=== PATIENT | female | born 1945 | race Caucasian/White ===

== ENCOUNTER 2017-03-14 19:18 | Observation (INO) | payer MEDICARE, OTHER ==
[2017-03-14] MEDS ORDERED: ASPIRIN CHEW 81 MG TABLET PO STA (19:53)
[2017-03-14] MEDS ORDERED: ASPIRIN CHEW 81 MG TABLET ONE (19:57)
[2017-03-14] MEDS ORDERED: POTASSIUM CHLORIDE 20 MEQ TABLET PO STA (20:23)
[2017-03-14] MEDS ORDERED: POTASSIUM CHLORIDE 20 MEQ TABLET PO ONE (20:30)
[2017-03-14] MEDS ORDERED: NITROGLYCERIN SL 0.4 MG TABLET SL PRN (20:37)
[2017-03-14] MEDS ORDERED: ONDANSETRON 4 MG/2 ML VIAL IVP PRN (20:37)
[2017-03-14] MEDS ORDERED: PROCHLORPERAZINE 10 MG/2 ML VIAL IVP PRN (20:37)
[2017-03-14] MEDS ORDERED: SODIUM CHLORIDE FLUSH 0.9% 10 ML SYRINGE IVP PRN (20:37)
[2017-03-14] MEDS ORDERED: MORPHINE 2 MG/ML SYRINGE IVP PRN (20:37)
[2017-03-14] MEDS ORDERED: ACETAMINOPHEN 325 MG TABLET PO PRN (20:37)
[2017-03-14] MEDS ORDERED: ZOLPIDEM 5 MG TABLET PO PRN (20:37)
[2017-03-14] MEDS ORDERED: HYDROcod/ACETAM 5/325 MG TABLET PO PRN (20:37)
[2017-03-14] MEDS ORDERED: ATORVASTATIN 40 MG TABLET PO SCH (21:00)
[2017-03-14] MEDS ORDERED: IOPAMIDOL-300 100 ML VIAL IVP ONE (21:41)
[2017-03-14] MEDS: SODIUM CHLORIDE FLUSH 0.9% 10 ML SYRINGE IVP SCH (22:54)
[2017-03-15] MEDS: SODIUM CHLORIDE FLUSH 0.9% 10 ML SYRINGE IVP SCH (06:06)
[2017-03-15] MEDS ORDERED: PANTOPRAZOLE 40 MG TABLET PO SCH (07:00)
[2017-03-15] MEDS ORDERED: ENOXAPARIN 40 MG/0.4 ML SYRINGE SUBQ SCH (09:00)
[2017-03-15] MEDS ORDERED: ASPIRIN EC 81 MG TABLET PO SCH (09:00)
[2017-03-15] MEDS ORDERED: POLYETHYLENE GLYCOL 3350 17 GM PACKET PO SCH (09:00)
[2017-03-15] MEDS ORDERED: ATENOLOL 25 MG TABLET PO SCH (09:00)
[2017-03-15] MEDS ORDERED: NON FORMULARY MED (Atenolol [Atenolol] 50 MG) PO SCH (09:00)
[2017-03-15] MEDS ORDERED: HYDROcod/ACETAM 5/325 MG TABLET PO ONE (10:15)
[2017-03-15] MEDS ORDERED: predniSONE 20 MG TABLET PO ONE (10:30)
== END 2017-03-15 13:55 | disposition home or self-care (01) ==
DX: R07.89 Other chest pain (principal); M94.0 Chondrocostal junction syndrome [Tietze]; I44.7 Left bundle-branch block, unspecified; Z82.49 Family history of ischemic heart disease and other diseases of the circulatory system; I12.9 Hypertensive chronic kidney disease with stage 1 through stage 4 chronic kidney disease, or unspecified chronic kidney disease; N18.9 Chronic kidney disease, unspecified; E78.1 Pure hyperglyceridemia; F32.9 Major depressive disorder, single episode, unspecified; F41.9 Anxiety disorder, unspecified; Z63.79 Other stressful life events affecting family and household
CPT/HCPCS: 36415; 71020; 71275; 80048; 80053; 80061; 82550; 82553; 83690; 84484; 85025; 93005; 93010; 93306; 96372; 99284; 99285; A9270; G0378; J1650; J7512; Q9967

== ENCOUNTER 2017-04-23 08:51 | Outpatient (CLI) | payer MEDICARE, OTHER ==
--- NOTE | 2017-04-24 14:28 | Mammography Report ---
DIGITAL SCREENING MAMMOGRAM: 04/23/2017 CLINICAL INDICATION: A 71-year-old with history of bilateral reduction, for screening. COMPARISON: 01/2015, 06/2012. TECHNIQUE: Routine CC and MLO projections were obtained of the breasts. FINDINGS: Parenchymal tissue within the breasts is predominantly fatty replaced. There are no domina nt masses, suspicious microcalcifications, or secondary signs of malignancy. In comparison to the pre vious studies, there are no significant changes. IMPRESSION: NO MAMMOGRAPHIC EVIDENCE OF MALIGNANCY. NO SIGNIFICANT INTERVAL CHANGES. RECOMMENDATION: Screening mammography is recommended annually. BIRADS category 1 - negative. STANDARD QUALIFYING STATEMENTS 1. This examination was reviewed with the aid of Computed-Aided Detection (CAD). 2. A negative or benign imaging report should not delay biopsy if clinically suspicious findings are present. Consider surgical consultation if warranted. More than 5% of cancers are not identified by i maging. 3. Dense breasts may obscure an underlying neoplasm. JOB #: [id number] EXT JOB #:[id number]
== END 2017-04-23 08:52 | disposition home or self-care (01) ==
LOC: DI 08:51
PROVIDERS: ATTEND Physician Assistant
DX: Z12.31 Encounter for screening mammogram for malignant neoplasm of breast (principal)
CPT/HCPCS: 77067

== ENCOUNTER 2017-04-23 09:31 | Outpatient (CLI) | payer MEDICARE, OTHER ==
[2017-04-23 09:56] LABS: BASOPHILS # (AUTO) 0.1 10^3/uL (0.0-0.1); BASOPHILS % (AUTO) 0.7 %; EOSINOPHILS # (AUTO) 0.2 10^3/uL (0.0-0.7); EOSINOPHILS % (AUTO) 2.3 %; HCT - HEMATOCRIT 34.6 % (37.0-47.0); HGB - HEMOGLOBIN 11.9 g/dL (12.0-16.0); LYMPHOCYTES # (AUTO) 1.5 10^3/uL (1.5-3.5); LYMPHOCYTES % (AUTO) 18.6 %; MEAN CORPUSCULAR HEMOGLOBIN 33.1 pg (27.0-31.0); MEAN CORPUSCULAR HGB CONC 34.3 g/dL (32.0-36.0); MEAN CORPUSCULAR VOLUME 96.6 fL (81.0-99.0); MEAN PLATELET VOLUME 7.9 fL (7.9-10.8); MONOCYTES # (AUTO) 0.9 10^3/uL (0.0-1.0); MONOCYTES % (AUTO) 10.7 %; NEUTROPHILS # (AUTO) 5.4 10^3/uL (1.5-6.6); NEUTROPHILS % (AUTO) 67.7 %; NUCLEATED RED BLOOD CELLS AUTO 0.1 /100WBC; RED BLOOD COUNT 3.58 10^6/uL (4.20-5.40); RED CELL DISTRIBUTION WIDTH 13.7 % (12.0-15.0)
[2017-04-23 10:23] LABS: ALBUMIN/GLOBULIN RATIO 1.2 (1.0-2.2); BILIRUBIN,TOTAL 0.6 mg/dL (0.2-1.0); BUN - BLOOD UREA NITROGEN 22 mg/dL (6-20); CALCIUM 8.9 mg/dL (8.5-10.3); CARBON DIOXIDE - CO2 31 mmol/L (21-32); CHLORIDE 102 mmol/L (101-111); CHOL/HDL RATIO 2.3 (<4.4); CHOLESTEROL 172 mg/dL; CREATININE 1.3 mg/dL (0.4-1.0); GFR - MDRD 40 (>89); GLUCOSE 97 mg/dL (70-100); HDL CHOLESTEROL 74 mg/dL; LDL/HDL RATIO 1.1 (<4.4); POTASSIUM 3.6 mmol/L (3.5-5.0); SODIUM 141 mmol/L (135-145); TOTAL PROTEIN 6.5 g/dL (6.7-8.2); TRIGLYCERIDES 98 mg/dL; VLDL CHOLESTEROL 20 mg/dL
== END 2017-04-23 09:32 | disposition home or self-care (01) ==
LOC: LAB 09:31
PROVIDERS: ATTEND Physician Assistant
DX: I12.9 Hypertensive chronic kidney disease with stage 1 through stage 4 chronic kidney disease, or unspecified chronic kidney disease (principal); E78.2 Mixed hyperlipidemia; N18.3 Chronic kidney disease, stage 3 (moderate)
CPT/HCPCS: 36415; 80053; 80061; 85025

== ENCOUNTER 2017-11-25 10:46 | Outpatient (CLI) | payer MEDICARE, OTHER ==
[2017-11-25 11:18] LABS: BASOPHILS # (AUTO) 0.1 10^3/uL (0.0-0.1); BASOPHILS % (AUTO) 1.3 %; EOSINOPHILS # (AUTO) 0.2 10^3/uL (0.0-0.7); HGB - HEMOGLOBIN 12.6 g/dL (12.0-16.0); LYMPHOCYTES # (AUTO) 1.4 10^3/uL (1.5-3.5); LYMPHOCYTES % (AUTO) 17.8 %; MEAN CORPUSCULAR HEMOGLOBIN 32.8 pg (27.0-31.0); MEAN CORPUSCULAR HGB CONC 32.6 g/dL (32.0-36.0); MEAN CORPUSCULAR VOLUME 100.6 fL (81.0-99.0); MEAN PLATELET VOLUME 8.9 fL (7.9-10.8); MONOCYTES # (AUTO) 0.6 10^3/uL (0.0-1.0); MONOCYTES % (AUTO) 7.9 %; NEUTROPHILS # (AUTO) 5.7 10^3/uL (1.5-6.6); PLT - PLATELET COUNT 287 10^3/uL (130-450); RED BLOOD COUNT 3.85 10^6/uL (4.20-5.40); RED CELL DISTRIBUTION WIDTH 14.2 % (12.0-15.0)
[2017-11-25 11:38] LABS: ALBUMIN 3.7 g/dL (3.2-5.5); ALBUMIN/GLOBULIN RATIO 1.2 (1.0-2.2); ALKALINE PHOSPHATASE 39 IU/L (42-121); ALT ALANINE AMINOTRANSFERASE 16 IU/L (10-60); AST ASPARTATE AMINOTRANSFERASE 22 IU/L (10-42); BILIRUBIN,TOTAL 0.5 mg/dL (0.2-1.0); BUN - BLOOD UREA NITROGEN 22 mg/dL (6-20); CALCIUM 8.7 mg/dL (8.5-10.3); CARBON DIOXIDE - CO2 29 mmol/L (21-32); CHLORIDE 101 mmol/L (101-111); CHOLESTEROL 191 mg/dL; CREATININE 1.2 mg/dL (0.4-1.0); GFR - MDRD 44 (>89); GLUCOSE 93 mg/dL (70-100); HDL CHOLESTEROL 95 mg/dL; LDL CHOLESTEROL,CALCULATED 75 mg/dL; LDL/HDL RATIO 0.8 (<4.4); SODIUM 140 mmol/L (135-145); TOTAL PROTEIN 6.7 g/dL (6.7-8.2); VLDL CHOLESTEROL 21 mg/dL
== END 2017-11-25 10:47 | disposition home or self-care (01) ==
LOC: LAB 10:46
PROVIDERS: ATTEND Physician Assistant
DX: I12.9 Hypertensive chronic kidney disease with stage 1 through stage 4 chronic kidney disease, or unspecified chronic kidney disease (principal); E78.2 Mixed hyperlipidemia; R60.9 Edema, unspecified; N18.3 Chronic kidney disease, stage 3 (moderate)
CPT/HCPCS: 36415; 80053; 80061; 83721; 85025

== ENCOUNTER 2018-03-03 09:19 | Outpatient (CLI) | payer MEDICARE, OTHER ==
[2018-03-03 10:27] LABS: ALBUMIN/GLOBULIN RATIO 1.4 (1.0-2.2); ALKALINE PHOSPHATASE 37 IU/L (42-121); ALT ALANINE AMINOTRANSFERASE 26 IU/L (10-60); AST ASPARTATE AMINOTRANSFERASE 29 IU/L (10-42); BILIRUBIN,TOTAL 0.6 mg/dL (0.2-1.0); BUN - BLOOD UREA NITROGEN 27 mg/dL (6-20); CALCIUM 8.8 mg/dL (8.5-10.3); CARBON DIOXIDE - CO2 28 mmol/L (21-32); CHLORIDE 102 mmol/L (101-111); CHOLESTEROL 180 mg/dL; CREATININE 1.1 mg/dL (0.4-1.0); GFR - MDRD 49 (>89); GLUCOSE 99 mg/dL (70-100); HDL CHOLESTEROL 92 mg/dL; LDL CHOLESTEROL,CALCULATED 69 mg/dL; LDL/HDL RATIO 0.8 (<4.4); SODIUM 137 mmol/L (135-145); TOTAL PROTEIN 6.8 g/dL (6.7-8.2); VLDL CHOLESTEROL 19 mg/dL
== END 2018-03-03 09:20 | disposition home or self-care (01) ==
LOC: LAB 09:19
PROVIDERS: ATTEND Physician Assistant
DX: I12.9 Hypertensive chronic kidney disease with stage 1 through stage 4 chronic kidney disease, or unspecified chronic kidney disease (principal); E78.2 Mixed hyperlipidemia; N18.3 Chronic kidney disease, stage 3 (moderate)
CPT/HCPCS: 36415; 80053; 80061; 83721

== ENCOUNTER 2018-10-14 09:30 | Outpatient (CLI) | payer MEDICARE, OTHER ==
[2018-10-14 10:17] LABS: BUN - BLOOD UREA NITROGEN 24 mg/dL (6-20); CALCIUM 8.5 mg/dL (8.5-10.3); CARBON DIOXIDE - CO2 27 mmol/L (21-32); CHLORIDE 105 mmol/L (101-111); CHOL/HDL RATIO 1.8 (<4.4); CHOLESTEROL 182 mg/dL; CREATININE 0.9 mg/dL (0.4-1.0); GFR - MDRD 62 (>89); GLUCOSE 98 mg/dL (70-100); HDL CHOLESTEROL 103 mg/dL; LDL CHOLESTEROL,CALCULATED 64 mg/dL; LDL/HDL RATIO 0.6 (<4.4); SODIUM 137 mmol/L (135-145); VLDL CHOLESTEROL 15 mg/dL
== END 2018-10-14 09:31 | disposition home or self-care (01) ==
LOC: LAB 09:30
PROVIDERS: ATTEND Physician Assistant
DX: I12.9 Hypertensive chronic kidney disease with stage 1 through stage 4 chronic kidney disease, or unspecified chronic kidney disease (principal); E78.2 Mixed hyperlipidemia; R60.9 Edema, unspecified; N18.3 Chronic kidney disease, stage 3 (moderate)
CPT/HCPCS: 36415; 80048; 80061; 83721

== ENCOUNTER 2019-07-18 10:22 | Outpatient (CLI) | payer MEDICARE, OTHER ==
[2019-07-18 10:55] LABS: CREATININE,URINE 121.1 mg/dL
[2019-07-18 10:56] LABS: MICROALBUMIN,URINE < 0.2 mg/dL (0-300.0)
[2019-07-18 11:20] LABS: ALBUMIN 3.6 g/dL (3.2-5.5); ALBUMIN/GLOBULIN RATIO 1.2 (1.0-2.2); ALKALINE PHOSPHATASE 43 IU/L (42-121); ALT ALANINE AMINOTRANSFERASE 16 IU/L (10-60); AST ASPARTATE AMINOTRANSFERASE 18 IU/L (10-42); BILIRUBIN,TOTAL 0.6 mg/dL (0.2-1.0); BUN - BLOOD UREA NITROGEN 14 mg/dL (6-20); CALCIUM 8.5 mg/dL (8.5-10.3); CARBON DIOXIDE - CO2 29 mmol/L (21-32); CHLORIDE 103 mmol/L (101-111); CHOL/HDL RATIO 2.4 (<4.4); CHOLESTEROL 195 mg/dL; GFR - MDRD 54 (>89); GLUCOSE 93 mg/dL (70-100); HDL CHOLESTEROL 81 mg/dL; LDL CHOLESTEROL,CALCULATED 91 mg/dL; LDL/HDL RATIO 1.1 (<4.4); SODIUM 142 mmol/L (135-145); TOTAL PROTEIN 6.6 g/dL (6.7-8.2); VLDL CHOLESTEROL 23 mg/dL
== END 2019-07-18 10:23 | disposition home or self-care (01) ==
LOC: LAB 10:22
PROVIDERS: ATTEND Physician Assistant
DX: E78.2 Mixed hyperlipidemia (principal); I12.9 Hypertensive chronic kidney disease with stage 1 through stage 4 chronic kidney disease, or unspecified chronic kidney disease; N18.3 Chronic kidney disease, stage 3 (moderate)
CPT/HCPCS: 36415; 80053; 80061; 82043; 82570; 83721

== ENCOUNTER 2019-08-04 15:28 | Outpatient (CLI) | payer MEDICARE, OTHER ==
--- NOTE | 2019-08-08 08:41 | DEXA Report ---
Reason: POSTMENOPAUSAL Procedure Date: 08/04/2019 Accession Number: [id number] / [id number] Procedure: DEX - Dexa Spine and/or Hip CPT Code: FULL RESULT: EXAM: Dexa Spine and/or Hip DATE: 08/04/2019 3:58 PM CLINICAL HISTORY: POSTMENOPAUSAL TECHNIQUE: Dual energy x-ray absorptiometry (DXA) was performed on a [employer] System. Regions measured are the AP Spine, femoral neck, and if needed forearm. COMPARISON: 10/24/2016 In accordance with the International Society for Clinical Densitometry (ISCD) guidelines, data from previous exams may be reanalyzed using current recommendations and techniques. This is done to allow a more accurate basis for comparison with the current study. FINDINGS: The data for the lumbar spine is as follows: BMD (g/cm/cm) T-SCORE Z-SCORE REGION L1 1.078 -0.4 1.0 L2 1.163 -0.3 1.1 L3 1.179 -0.2 1.2 TOTAL 1.143 -0.2 1.2 NOTE: All evaluable vertebrae are used for classification The data for the hip is as follows: BMD (g/cm/cm) T-SCORE Z-SCORE REGION Neck 0.880 -1.1 0.5 TOTAL 0.908 -0.8 0.6 NOTE: The femoral neck or total proximal femur, whichever is lowest, is used for classification. DXA RESULTS SUMMARY: Spine SCAN DATE AGE BMD CHANGE VS CHANGE VS PREVIOUS PREVIOUS % [birth year]/04/2019 [age] 1.143 0.004 0.4 10/24/2016 [age] 1[age]139 N/A N/A * Denotes significant change at the 95% confidence level. Denotes dissimilar scan types or analysis methods. DXA RESULTS SUMMARY: Hip SCAN DATE AGE BMD CHANGE VS CHANGE VS PREVIOUS PREVIOUS % [birth year]04/2019 [age] 0.908 -0.042* -4.4* 10/24/2016 [age] 0[age]950 * Denotes significant change at the 95% confidence level. Denotes dissimilar scan types or analysis methods. IMPRESSION: THE WHO CLASSIFICATION BASED ON THE INTERNATIONAL REFERENCE STANDARD IS OSTEOPENIA. THE FRACTURE RISK IS INCREASED. RECOMMENDATION: Patients with diagnosis of osteoporosis or osteopenia should have regular bone mineral density assessment. For those eligible for Medicare, routine testing is allowed once every 2 years. Testing frequency can be increased for patients who have rapidly progressing disease or for those who are receiving medical therapy to restore bone mass. COMMENT: World Health Organization (WHO) definitions for osteoporosis and osteopenia: NORMAL BMD: T-score at -1.0 or higher, fracture risk is low OSTEOPENIA BMD: T-score between -1.0 and -2.5, fracture risk is increased. OSTEOPOROSIS BMD: T-score at -2.5 or lower, fracture risk is high. National Osteoporosis Foundation recommends: 1. Obtain adequate dietary calcium (at least 1200 mg per day) and vitamin D (400-800 international units per day). 2. Participate, as appropriate, in regular weightbearing and muscle-strengthening exercise. 3. Avoid tobacco use and reduce alcohol and caffeine intake. 4. For more detailed information see the website at www.NOF.org.
== END 2019-08-04 15:29 | disposition home or self-care (01) ==
LOC: DI 15:28
PROVIDERS: ATTEND Physician Assistant
DX: M85.88 Other specified disorders of bone density and structure, other site (principal)
CPT/HCPCS: 77080

== ENCOUNTER 2019-08-04 15:31 | Outpatient (CLI) | payer MEDICARE, OTHER ==
--- NOTE | 2019-08-05 09:18 | Mammography Report ---
Reason: ROUTINE MAMMO Procedure Date: 08/04/2019 Accession Number: [id number] / [id number] Procedure: [facility] - Screening Mammo w/Guillermo CPT Code: FULL RESULT: EXAM: Screening Mammo w/Guillermo DATE: 08/04/2019 4:12 PM CLINICAL HISTORY: Screening encounter. TECHNIQUE: (B) - Bilateral CC and MLO views were obtained. COMPARISON: 04/23/2017 through 06/09/2012. PARENCHYMAL PATTERN: (A) - The breast(s) demonstrate(s) scattered fibroglandular densities. FINDINGS: There are no suspicious masses, calcifications, or areas of distortion. IMPRESSION: Negative examination. BI-RADS category 1. RECOMMENDATION: (ANNUAL) - Recommend routine annual screening mammography. BI-RADS CATEGORY: (1) - Negative. STANDARD QUALIFYING STATEMENTS: 1. This examination was not reviewed with the aid of Computer-Aided Detection (CAD). 2. A negative or benign imaging report should not preclude biopsy if clinically suspicious findings are present. 3. Dense breasts may obscure an underlying neoplasm. 4. This examination was reviewed with the aid of 3D breast imaging (tomosynthesis).
== END 2019-08-04 15:32 | disposition home or self-care (01) ==
LOC: DI 15:31
DX: Z12.31 Encounter for screening mammogram for malignant neoplasm of breast (principal)
CPT/HCPCS: 77063; 77067

== ENCOUNTER 2022-05-19 09:52 | Outpatient (CLI) | payer MEDICARE, OTHER ==
--- NOTE | 2022-05-19 14:53 | DEXA Report ---
PROCEDURE: Dexa Spine and/or Hip INDICATIONS: POST MENOPAUSAL TECHNIQUE: Dual energy x-ray absorptiometry (DXA) was performed on a [employer] System. Regions measur ed are the AP Spine, femoral neck, and if needed forearm. COMPARISON: 08/04/2019. FINDINGS: Lumbar Spine: Bone Mineral Density 1.132 g/cm/cm,T score -0.4, normal. Left Hip: Bone Mineral Density 0.917 g/cm/cm,T score -0.7, normal Left Femoral Neck: Bone Mineral Density 0.799 g/cm/cm, T score -1.7, osteopenia (T score greater or equal to -1.0: NORMAL) (T score from -1.1 to -2.4: OSTEOPENIA) (T score less than or equal to -2.5 to: OSTEOPOROSIS) Impression: Osteopenia. Patients with diagnosis of osteoporosis or osteopenia should have regular bone mineral density assess ment. For those eligible for Medicare, routine testing is allowed once every 2 years. Testing frequ ency can be increased for patients who have rapidly progressing disease or for those who are receivin g medical therapy to restore bone mass. Reviewed by: Fortunato Donaldson MD on 05/19/2022 2:52 PM PDT Approved by: Fortunato Donaldson MD on 05/19/2022 2:52 PM PDT Station ID: [id number]
== END 2022-05-19 09:53 | disposition home or self-care (01) ==
LOC: DI 09:52
PROVIDERS: ATTEND Physician Assistant
DX: Z13.820 Encounter for screening for osteoporosis (principal); M85.88 Other specified disorders of bone density and structure, other site; N95.8 Other specified menopausal and perimenopausal disorders

== ENCOUNTER 2022-12-16 08:11 | Outpatient (CLI) | payer MEDICARE, OTHER ==
[2022-12-16 08:47] LABS: HCT - HEMATOCRIT 38.8 % (37.0-47.0); HGB - HEMOGLOBIN 12.5 g/dL (12.0-16.0); MEAN CORPUSCULAR HEMOGLOBIN 33.2 pg (27.0-31.0); MEAN CORPUSCULAR HGB CONC 32.2 g/dL (32.0-36.0); MEAN CORPUSCULAR VOLUME 102.9 fL (81.0-99.0); MEAN PLATELET VOLUME 10.3 fL (7.9-10.8); RED BLOOD COUNT 3.77 10^6/uL (4.20-5.40); RED CELL DISTRIBUTION WIDTH 12.6 % (12.0-15.0); WHITE BLOOD COUNT 8.4 x10^3/uL (4.8-10.8)
[2022-12-16 09:05] LABS: CREATININE,URINE 85.4 mg/dL
[2022-12-16 09:06] LABS: MICROALBUMIN,URINE < 0.2 mg/dL (0-300.0)
[2022-12-16 09:08] LABS: ALBUMIN 3.7 g/dL (3.2-5.5); ALBUMIN/GLOBULIN RATIO 1.3 (1.0-2.2); ALKALINE PHOSPHATASE 47 IU/L (42-121); ALT ALANINE AMINOTRANSFERASE 16 IU/L (10-60); AST ASPARTATE AMINOTRANSFERASE 19 IU/L (10-42); BILIRUBIN,TOTAL 0.7 mg/dL (0.2-1.0); BUN - BLOOD UREA NITROGEN 23 mg/dL (6-20); CALCIUM 8.9 mg/dL (8.5-10.3); CARBON DIOXIDE - CO2 25 mmol/L (21-32); CHLORIDE 99 mmol/L (101-111); CHOL/HDL RATIO 1.6 (<4.4); CHOLESTEROL 162 mg/dL; CREATININE 1.1 mg/dL (0.4-1.0); GFR - MDRD 48 (>89); GLUCOSE 107 mg/dL (70-100); HDL CHOLESTEROL 104 mg/dL; LDL CHOLESTEROL,CALCULATED 38 mg/dL; LDL/HDL RATIO 0.4 (<4.4); POTASSIUM 3.8 mmol/L (3.5-5.0); SODIUM 136 mmol/L (135-145); TOTAL PROTEIN 6.6 g/dL (6.7-8.2); TRIGLYCERIDES 99 mg/dL; VLDL CHOLESTEROL 20 mg/dL
== END 2022-12-16 08:12 | disposition home or self-care (01) ==
LOC: LAB 08:11
PROVIDERS: ATTEND Family Medicine
DX: I10 Essential (primary) hypertension (principal); E78.2 Mixed hyperlipidemia; R60.9 Edema, unspecified; F32.A Depression, unspecified
CPT/HCPCS: 36415; 80053; 80061; 82043; 82570; 83721; 85027

== ENCOUNTER 2024-05-16 13:16 | Emergency (ER) | payer MEDICARE, OTHER ==
[2024-05-16 14:58] LABS: BASOPHILS % (AUTO) 0.3 %; EOSINOPHILS % (AUTO) 0.4 %; HCT - HEMATOCRIT 37.6 % (37.0-47.0); HGB - HEMOGLOBIN 13.4 g/dL (12.0-16.0); LYMPHOCYTES # (AUTO) 1.8 10^3/uL (1.5-3.5); LYMPHOCYTES % (AUTO) 17.8 %; MEAN CORPUSCULAR HEMOGLOBIN 34.2 pg (27.0-31.0); MEAN CORPUSCULAR HGB CONC 35.6 g/dL (32.0-36.0); MEAN CORPUSCULAR VOLUME 95.9 fL (81.0-99.0); NEUTROPHILS # (AUTO) 7.2 10^3/uL (1.5-6.6); PLT - PLATELET COUNT 259 10^3/uL (130-450); RED BLOOD COUNT 3.92 10^6/uL (4.20-5.40); RED CELL DISTRIBUTION WIDTH 12.9 % (12.0-15.0); WHITE BLOOD COUNT 10.2 x10^3/uL (4.8-10.8)
[2024-05-16 15:27] LABS: ALBUMIN 4.1 g/dL (3.2-5.5); ALBUMIN/GLOBULIN RATIO 1.7 (1.0-2.2); BILIRUBIN,TOTAL 0.6 mg/dL (0.2-1.0); CREATININE 1.7 mg/dL (0.6-1.3); POTASSIUM 2.4 mmol/L (3.5-4.5); TOTAL PROTEIN 6.5 g/dL (6.4-8.9)
[2024-05-16] MEDS: POTASSIUM BICARB 25 MEQ TABLET PO STA (15:43)
[2024-05-16] MEDS: SODIUM CHLORIDE 0.9% 2,000 ML IV STA (15:43)
[2024-05-16 16:02] LABS: MAGNESIUM 2.1 mg/dL (1.7-2.3)
[2024-05-16 16:11] LABS: PHOSPHORUS < 1.0 mg/dL (2.5-5.0)
[2024-05-16 16:41] VITALS: O2SAT 100
[2024-05-16 17:22] VITALS: BP 125/45
--- NOTE | 2024-05-16 17:30 | ED Physician Documentation ---
History of Present Illness - Stated complaint Stated Complaint: LOW BP, SOA - Chief complaint Chief Complaint: Cardiac - History obtained from History obtained from: Patient - History of Present Illness Timing: How many weeks ago Pain level max: 0 Pain level now: 0 - Additonal information Additional information: Patient is a 78-year-old female who states that she has had low blood pressure for the past 1 to 2 weeks. She states that she has been on Lasix and hydrochlorothiazide at home but stopped it 2 days ago. She states when she stands up quickly she feels lightheaded and dizzy. Better with rest. She states that she has not been sick. No fevers. No cough. No congestion. No abdominal pain, nausea, vomiting, diarrhea. No leg swelling. No recent travel. No chest pain. No pleuritic chest pain. Review of Systems Constitutional: denies: Fever, Chills Nose: denies: Rhinorrhea / runny nose, Congestion GI: denies: Vomiting, Diarrhea Skin: denies: Rash Musculoskeletal: denies: Neck pain, Back pain Neurologic: denies: Headache PD PAST MEDICAL HISTORY - Past Medical History Past Medical History: Yes Cardiovascular: Hypertension, High cholesterol Respiratory: Asthma GI: Chronic diarrhea : None HEENT: None Psych: Depression, Anxiety Musculoskeletal: None Derm: None - Past Surgical History Past Surgical History: Yes General: Cholecystectomy Ortho: Shoulder arthroplasty, Carpal Tunnel surgery, Other /[employer]: Hysterectomy, Breast reduction - Present Medications Home Medications: Ambulatory Orders Medication Instructions Recorded Confirmed Amlodipine Besylate/Benazepril 1 each PO DAILY 05/16/24 05/16/24 [Amlodipine-Benazepril 5-10 mg] Dicyclomine HCl 10 mg PO BID PRN 05/16/24 05/16/24 Fluoxetine HCl [Prozac] 20 mg PO DAILY 05/16/24 05/16/24 Furosemide [Lasix] 20 mg PO DAILY 05/16/24 05/16/24 Hyoscyamine Sulfate [Levbid] 0.375 mg PO DAILY 05/16/24 05/16/24 Potassium Chloride 10 meq PO DAILY 05/16/24 05/16/24 Rosuvastatin Calcium 20 mg PO DAILY 05/16/24 05/16/24 Triamcinolone 0.1% Cream [Kenalog 1 applic TOP DAILY 05/16/24 05/16/24 0.1% Cream] estradioL [Estradiol] 2 mg PO DAILY 05/16/24 05/16/24 hydroCHLOROthiazide [Hydrodiuril] 25 mg PO BID 05/16/24 05/16/24 traZODone [Desyrel] 50 mg PO HS 05/16/24 05/16/24 - Allergies Allergies/Adverse Reactions: Allergies Allergy/AdvReac Type Severity Reaction Status Date / Time codeine Allergy Rash Verified 05/16/24 15:20 - Social History Does the pt smoke?: No Smoking Status: Never smoker Does the pt drink ETOH?: Yes - Immunizations Immunizations are current?: Yes - POLST Patient has POLST: No POLST Status: Full Code PD ED PE NORMAL - Vitals Vital signs reviewed: Yes - General General: Alert and oriented X 3, No acute distress - HEENT HEENT: PERRL, Moist mucous membranes - Neck Neck: Supple, no meningeal sign - Cardiac Cardiac: RRR, Strong equal pulses - Respiratory Respiratory: No respiratory distress, Clear bilaterally - Abdomen Abdomen: Soft, Non tender, Non distended - Derm Derm: Warm and dry - Extremities Extremities: No edema - Neuro Neuro: Alert and oriented X 3 - Psych Psych: Normal mood, Normal affect Results - Vitals Vitals: Vital Signs - 24 hr 05/16/24 05/16/24 05/16/24 13:40 15:21 15:55 Temperature 36.8 C Heart Rate 88 63 73 Respiratory 16 10 L 15 Rate Blood Pressure 103/64 90/68 158/93 H O2 Saturation 100 100 97 05/16/24 05/16/24 05/16/24 16:05 16:30 17:00 Temperature Heart Rate 60 68 57 L Respiratory 14 17 10 L Rate Blood Pressure 152/70 H 137/51 H 125/45 L O2 Saturation 96 100 100 Oxygen O2 Source Room air - EKG (time done) 1543 EKG releavant findings:: EKG personally interpreted by author of this note. Relevant findings are: Rate: Rate (enter#) (61) Rhythm: NSR Intervals: LBBB - Labs Labs: Laboratory Tests 05/16/24 05/16/24 05/16/24 14:53 14:53 14:53 WBC 10.2 RBC 3.92 L Hgb 13.4 Hct 37.6 MCV 95.9 MCH 34.2 H MCHC 35.6 RDW 12.9 Plt Count 259 MPV 10.0 Neut # (Auto) 7.2 H Lymph # (Auto) 1.8 Johnson # (Auto) 1.0 Eos # (Auto) 0.0 Baso # (Auto) 0.0 Absolute Nucleated RBC 0.00 Nucleated RBC % 0.0 Sodium 136 Potassium 2.4 L* Chloride 96 L Carbon Dioxide 31 Anion Gap 9.0 BUN 28 H Creatinine 1.7 H Estimated GFR (MDRD) 29 L Glucose 94 Calcium 10.0 Phosphorus < 1.0 L* Magnesium 2.1 Total Bilirubin 0.6 AST 21 ALT 16 Alkaline Phosphatase 46 Total Protein 6.5 Albumin 4.1 Globulin 2.4 Albumin/Globulin Ratio 1.7 Lipase 37 PD Medical Decision Making - ED course Complexity details: reviewed results, re-evaluated patient, considered differential, d/w patient, d/w family ED course: Patient is a 78-year-old female who presents to the emergency department with what appears to be significant dehydration, likely secondary to the very warm weather we have been having lately combined with her 2 diuretics. She is on both Lasix and spironolactone. She has hypophosphatemia and hypokalemia. Given 2 L of IV fluid and 50 mEq of oral potassium. Feels much better. Ambulating without difficulty. No lightheadedness, dizziness or tremors residually. Recommend that she follow-up with her doctor in 2 to 3 days for recheck of her potassium. She will continue to hold her diuretics. Recommend she increase her water intake at home as well. No hypotension here after IV fluids. No focal neurological deficits. Normal cerebellar testing. Patient counseled regarding signs and symptoms for which I believe and urgent re-evaluation would be necessary. Patient with good understanding of and agreement to plan and is comfortable going home at this time This document was made in part using voice recognition software. While efforts are made to proofread this document, sound alike and grammatical errors may occur. Departure - Departure Disposition: 01 Home, Self Care Clinical Impression: Dehydration, Hypokalemia Condition: Good Instructions: ED Dehydration, ED Potassium Deficiency Follow-Up: REN MULLIGAN, [employer] DISP[employer] [Primary Care Provider] - Comments: You should have your potassium rechecked with your primary care provider in [address] an order for this for you at the lab. Please stop your diuretics until this is done. Please make sure you are drinking plenty of water at home. Please return if you worsen. Forms: PCP List Discharge Date/Time: 05/16/24 17:44
== END 2024-05-16 17:44 | disposition home or self-care (01) ==
LOC: ED 13:16
DX: E86.0 Dehydration (principal); E87.6 Hypokalemia; I10 Essential (primary) hypertension; E78.00 Pure hypercholesterolemia, unspecified; J45.909 Unspecified asthma, uncomplicated; Z79.899 Other long term (current) drug therapy
CPT/HCPCS: 36415; 80053; 83690; 83735; 84100; 85025; 93005; 96360; 96361; 99283; A9270